=== PATIENT | female | born 2000 | race African-American/Black ===

== ENCOUNTER 2019-12-23 16:08 | Emergency (ER) | payer OTHER ==
[2019-12-23 16:15] VITALS: BMI 18.8
--- OUTSIDE RECORDS SUMMARY | 2019-12-23 16:23 | XMS ---
:2000 Author Organization [facility] Care Team Providers Name Role Phone ED STAFF PHYSICIAN, STAFF Unavailable Unavailable ED STAFF PHYSICIAN Unavailable Unavailable Re-disclosure Warning The records that you are about to access may contain information from federally- assisted alcohol or drug abuse programs. If such information is present, then the following federally mandated warning applies: This information has been disclosed to you from records protected by federal confidentiality rules (42 CFR part 2). The federal rules prohibit you from making any further disclosure of this information unless further disclosure is expressly permitted by the written consent of the person to whom it pertains or as otherwise permitted by 42 CFR part 2. A general authorization for the release of medical or other information is NOT sufficient for this purpose. The Federal rules restrict any use of the information to criminally investigate or prosecute any alcohol or drug abuse patient.The records that you are about to access may contain highly sensitive health information, the redisclosure of which is protected by Article 27-F of the [facility] Public Health law. If you continue you may haveaccess to information: Regarding HIV / AIDS; Provided by facilities licensed or operated by the [facility] Office of Mental Health; or Provided by the [facility] Office for People With Developmental Disabilities. If such information is present, then the following [facility] mandated warning applies: This information has been disclosed to you from confidential records which are protected by state law. State law prohibits you from making any further disclosure of this information without the specific written consent of the person to whom it pertains, or as otherwise permitted by law. Any unauthorized further disclosure in violation of state law may result in a fine or group home sentence or both. A general authorization for the release of medical or other information is NOT sufficient authorization for further disclosure. Allergies and Adverse Reactions Type Description Substance Reaction Status Data Source(s ) No Known No Known Allergies No Known eCW2 ( [facility] Encounters Encounter Providers Location Date Indications Data Source(s ) Emergency Attender: ED STAFF H 12/11/2019 [facility] PHYSICIANAttender: 05:52:00 PM EDT M edical Center STAFF ED STAFF - 12/11/2019 PHYSICIANAdmitter: 11:21:00 PM EDT ED STAFF PHYSICIAN [facility] 12:00:00 eCW2 ([facility] [place] AM EDT [facility]) Emergency H 12/03/2018 12:21:00 [facility] EDT - 12/03/2018 Cente r 02:33:00 PM EDT Patient discharged. Emergency H 10/18/2018 12:01:00 PM EDT [facility] Immunizations Vaccine Date Status Description Data Source(s) No Known Immunizations completed eCW2 ([facility]) Medications Medication Brand Start Product Dose Route Administrative Pharm[facility] Indications Reaction Description Data Name Date Form Instructions Instructions Source(s) Ibuprofen ibupro 1 complet [facility] 800 MG Oral [facility] Tablet 800 mg Medical ibuprofen Tablet Center 800 mg , Tablet, Ordere Ordered By: d By: Too Ye PADirection PADire s: 1 tablet ctions oral every : 1 eight hours tablet PRN oral pain-modera every te eight hours PRN pain-m oderat e Ibuprofen ibupro 1 complet [facility] 600 MG Oral fen [facility] Tablet 600 mg Medical ibuprofen Tablet Center 600 mg , Tablet, Ordere Ordered By: d By: Jenifer Samant Penar, cash FNPDirectio Penar, ns: 1 FNPDir tablet oral ection every six s: 1 hours PRN tablet pain oral every six hours PRN pain Cyclobenzap cyclob 1 complet Elie nt rine enzapr ed Deanna hydrochlori ine 10 Medica l de 10 MG mg Center Oral Tablet Tablet cyclobenzap , rine 10 mg Ordere Tablet, d By: Ordered By: Haley Canseco, FNPDirectio FNPDir ns: 1 ection tablet oral s: 1 three times tablet a day PRN oral pain-modera three te times a day PRN pain-m oderat e No Known complet eCW2 Medications ed ([facility]) Insurance Providers Payer name Policy type Policy ID Covered Covered constitution party's Policy P shannen / Coverage constitution party ID relationship to Slade Inf ormation type slade AFFINITY [id number] SP [id number] AFFINITY O [id number] 01 [id number] HEALTH PLAN AFFINITY O [id number] 01 [id number] HEALTH PLAN AFFINITY O [id number] 01 [id number] ESSENTIALS-C OMMERCIAL GUTIÉRREZ O [id number] 01 [id number] HEALTH Medicaid [id number] S [id number] Regular Clinic Visit Problems, Conditions, and Diagnoses Code Display Name Description Problem Type Effective Data Sour ce(s) Dates Unknown Problems Unknown Problems Problem eC W2 ([facility] N83.202 Unspecified UNSPECIFIED Diagnosis 12/11/2019 [facility] ovarian cyst, OVARIAN CYST, 05:52:00 PM Medical Center left side LEFT SIDE EDT R10.9 Unspecified UNSPECIFIED Diagnosis 12/11/2019 [facility] abdominal pain ABDOMINAL PAIN 05:52:00 PM Medic al Center EDT M54.9 Dorsalgia, DORSALGIA, Diagnosis 12/03/2018 [facility] unspecified UNSPECIFIED 12:21:[address] EDT Y99.8 Other external OTHER EXTERNAL Diagnosis 10/18/2018 [facility] cause status CAUSE STATUS 12:01:00 PM Medical C enter EDT Y92.[address] IN Diagnosis 10/18/[address] in APARTMENT 12:01:[address] as the PLACE EDT place of occurrence of the external cause Y93.9 Activity, ACTIVITY, Diagnosis 10/18/2018 [facility] unspecified UNSPECIFIED 12:01:[address] EDT W22.03XA Walked into WALKED INTO Diagnosis 10/18/2018 [facility] ernst furniture, FURNITURE, 12:01:00 PM Medical Dillan valencia initial INITIAL EDT encounter ENCOUNTER S90.121A Contusion of CONTUSION OF Diagnosis 10/18/2018 [facility] right lesser RIGHT LESSER 12:01:00 PM Medical C enter toe(s) without TOE(S) W/O EDT damage to nail, DAMAGE TO NAIL, initial INIT encounter 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 ([facility] test, test, 03:42:23 PM Meño non result positive result positive [facility]) Surgeries/Procedures Procedure Description Date Indications Data Source(s) Test 11/10/2019 12:00:00 eCW2 ( [facility] [place]) Results ID Date Data Source Urinalysis.[id number] 12/11/2019 06:38:00 PM EDT [facility] 0 Name Value Range Interpretation Description Data Sup porting Code Source(s) Document(s ) Color of Urine YELLOW <content Saint styleCode="Linda Deanna d">Color, Medical Urine Center </content>YELL OW <content styleCode="Hyacinth lics"> (YELLOW )</content> UNK CLEAR <content [facility] styleCode="Linda Deanna d">Urine Medical Clarity Center </content>ANNIE R <content styleCode="Hyacinth lics"> (CLEAR )</content> Ketones NEGATIVE <content Saint [Mass/volume] styleCode="Linda Deanna in Urine by d">Urine Medical Test strip Ketone Center </content>NEGA TIVE MG/DL<content styleCode="Hyacinth lics"> (NEGATIVE MG/DL)</conten t> UNK NEGATIVE <content Saint styleCode="Linda Deanna d">Urine Medical Bilirubin Center </content>NEGA TIVE <content styleCode="Hyacinth lics"> (NEGATIVE )</content> Glucose NEGATIVE <content Saint [Mass/volume] styleCode="Linda Deanna in Urine by d">Urine Medical Test strip Glucose Center </content>NEGA TIVE MG/DL<content styleCode="Hyacinth lics"> (NEGATIVE MG/DL)</conten t> Specific 1.015-1.02 <content [facility] gravity of 5 styleCode="Linda Huerta Urine by Test d">Urine Medical strip Specific Center [place] </content>1.02 0 <content styleCode="Hyacinth lics"> (1.015-1.025 )</content> Hemoglobin NEGATIVE <content Saint [Presence] in styleCode="L[facility] Urine by Test d">Urine Blood Medical strip </content>NEGA Center TIVE <content styleCode="Hyacinth lics"> (NEGATIVE )</content> Protein NEGATIVE <content Saint [Mass/volume] styleCode="Linda Hendersons in Urine by d">Urine Medical Test strip Protein Center </content>NEGA TIVE MG/DL<content styleCode="Hyacinth lics"> (NEGATIVE MG/DL)</conten t> pH of Urine by 4.5-8.0 <content Saint Test strip styleCode="Linda Hendersons d">Urine pH Medical </content>7.5 Center <content styleCode="Hyacinth lics"> (4.5-8.0 )</content> Nitrite NEGATIVE <content Saint [Presence] in styleCode="Linda Huerta Urine by Test d">Urine Medical strip Nitrite Center </content>NEGA TIVE <content styleCode="Hyacinth lics"> (NEGATIVE )</content> Leukocyte NEGATIVE <content Saint esterase styleCode="Linda Hendersons [Presence] in d">Urine Medical Urine by Test Leukocyte Center strip </content>NEGA TIVE <content styleCode="Hyacinth lics"> (NEGATIVE )</content> Urobilinogen 0.2-1.0 <content Saint [Units/volume] styleCode="Linda Hendersons in Urine by d">Urine Medical Test strip Urobilinogen Center </content>0.2 MG/DL<content styleCode="Hyacinth lics"> (0.2-1.0 MG/DL)</conten t> ID Date Data Source Liver 12/11/2019 06:38:00 PM EDT [facility] Profile.[id number] Name Value Range Interpretation Description Data Sup porting Code Source(s) Document(s ) Bilirubin.total 0.2-1.3 <content Saint [Mass/volume] in styleCode="Bold"> Lucas hs Serum or Plasma Bilirubin Total Medical </content>0.4 Center MG/DL<content styleCode="Italic s"> (0.2-1.3 MG/DL)</content> Alkaline 38-126 <content [facility] phosphatase styleCode="Bold"> Deanna [Enzymatic Alkaline Medical activity/volume] Phosphatase (ALP) Cente r in Serum or Plasma </content>66 IU/L<content styleCode="Italic s"> (38-126 IU/L)</content> Alanine 7-30 <content [facility] aminotransferase styleCode="Bold"> Lucas hs [Enzymatic Alanine Medical activity/volume] Aminotransferase Center in Serum or Plasma (ALT) </content>20 IU/L<content styleCode="Italic s"> (7-30 IU/L)</content> Aspartate 14-36 <content [facility] aminotransferase styleCode="Bold"> Lucas hs [Enzymatic Aspartate Medical activity/volume] Aminotransferase Center in Serum or Plasma (AST) </content>30 IU/L<content styleCode="Italic s"> (14-36 IU/L)</content> UNK 0.0-0.3 <content [facility] styleCode="Bold"> Deanna Bilirubin, Direct Medical </content>< 0.2 Center MG/DL<content styleCode="Italic s"> (0.0-0.3 MG/DL)</content> Albumin 3.5-5.0 <content [facility] [Mass/volume] in styleCode="Bold"> Lucas hs Serum or Plasma Albumin Medical </content>5.0 Center G/DL<content styleCode="Italic s"> (3.5-5.0 G/DL)</content> ID Date Data Source HematologyRou.[id number] 12/11/2019 06:38:00 PM EDT [facility] 0400 Name Value Range Interpretation Description Data Sup porting Code Source(s) Document(s ) Leukocytes 4.4-11.0 <content Saint [#/volume] in styleCode="Bold Deanna Blood by ">White Blood Medical Automated count Cell Count Center </content>6.40 KCUMM<content styleCode="Ital ics"> (4.4-11.0 KCUMM)</content > Erythrocytes 4.0-5.1 Below low normal <content Saint [#/volume] in styleCode="Bold Deanna Blood by ">Red Blood Medical Automated count Cell Count Center </content>3.87 MCUMM L<content styleCode="Ital ics"> (4.0-5.1 MCUMM)</content > Hemoglobin 12.3-16. <content Saint [Mass/volume] in 0 styleCode="Bold Deanna Blood ">Hemoglobin Medical </content>12.3 Center G/DL<content styleCode="Ital ics"> (12.3-16.0 G/DL)</content> Erythrocyte mean 32.0-37. <content [facility] corpuscular 0 styleCode="Bold Deanna hemoglobin ">Mean Corpus. Medical concentration Hgb Center [Mass/volume] by Concentration Automated count (MCHC) </content>32.0 G/DL<content styleCode="Ital ics"> (32.0-37.0 G/DL)</content> Erythrocyte mean 26.0-34. <content [facility] corpuscular 0 styleCode="Bold Deanna hemoglobin ">Mean Medical [Entitic mass] Corposcular Center by Automated Hemoglobin count </content>31.8 PG<content styleCode="Ital ics"> (26.0-34.0 PG)</content> Hematocrit 36.0-46. <content Saint [Volume 0 styleCode="Bold Deanna Fraction] of ">Hematocrit Medical Blood by </content>38.4 Center Automated count %<content styleCode="Ital ics"> (36.0-46.0 %)</content> Erythrocyte mean 80.0-100 <content [facility] corpuscular .0 styleCode="Bold Deanna volume [Entitic ">Mean Medical volume] by Corpuscular Center Automated count Volume </content>99.2 FL<content styleCode="Ital ics"> (80.0-100.0 FL)</content> Erythrocyte 11.5-14. <content [facility] distribution 5 styleCode="Bold Deanna width [Ratio] by ">Red Cell Medical Automated count Distribution Center Width </content>11.8 %<content styleCode="Ital ics"> (11.5-14.5 %)</content> Lymphocytes 24.0-44. <content Saint [#/volume] in 0 styleCode="Bold Deanna Blood by ">Lymphocyte Medical Automated count </content>28.6 Center %<content styleCode="Ital ics"> (24.0-44.0 %)</content> Platelets 130-400 <content Saint [#/volume] in styleCode="Bold Deanna Blood by ">Platelet Medical Automated count Count Center </content>217 KCUMM<content styleCode="Ital ics"> (130-400 KCUMM)</content > UNK 1.6-7.3 <content Saint styleCode="Bold Deanna ">Neutrophil Medical Count Center </content>3.54 KCUMM<content styleCode="Ital ics"> (1.6-7.3 KCUMM)</content > Neutrophils 36-66 <content Saint [#/volume] in styleCode="Bold Deanna Blood by ">Neutrophil Medical Automated count </content>55.3 Center %<content styleCode="Ital ics"> (36-66 %)</content> Platelet mean 8.0-11.0 Above high <content Saint volume [Entitic normal styleCode="Bold Deanna volume] in Blood ">Mean Platelet Medical by Automated Volume Center count </content>11.8 FL H<content styleCode="Ital ics"> (8.0-11.0 FL)</content> Monocytes 3.0-10.0 Above high <content Saint [#/volume] in normal styleCode="Bold Deanna Blood by ">Monocyte Medical Automated count </content>14.7 Center % H<content styleCode="Ital ics"> (3.0-10.0 %)</content> Eosinophils 0-5.0 <content Saint [#/volume] in styleCode="Bold Deanna Blood by ">Eosinophil Medical Automated count </content>0.3 Center %<content styleCode="Ital ics"> (0-5.0 %)</content> UNK 0.2-0.9 Above high <content Saint normal styleCode="Bold Deanna ">Monocyte Medical Count Center </content>0.94 KCUMM H<content styleCode="Ital ics"> (0.2-0.9 KCUMM)</content > UNK 1.0-4.8 <content Saint styleCode="Bold Deanna ">Lymphocyte Medical Count Center </content>1.83 KCUMM<content styleCode="Ital ics"> (1.0-4.8 KCUMM)</content > UNK 0 <content Saint styleCode="Bold Deanna ">Nucleated Red Medical Blood Cell Center </content>0.0 /100<content styleCode="Ital ics"> (0 /100)</content> UNK 0.0 <content Saint styleCode="Bold Deanna ">Nucleated Red Medical Blood Cell Center Count </content>0.00 KCUMM<content styleCode="Ital ics"> (0.0 KCUMM)</content > Basophils 0.0-1.0 <content Saint [#/volume] in styleCode="Bold Deanna Blood by ">Basophil Medical Automated count </content>0.8 Center %<content styleCode="Ital ics"> (0.0-1.0 %)</content> UNK 0.0-0.3 <content Saint styleCode="Bold Deanna ">Basophil Medical Count Center </content>0.05 KCUMM<content styleCode="Ital ics"> (0.0-0.3 KCUMM)</content > UNK 0.0-0.6 <content [facility] styleCode="Bold Deanna ">Eosinophil Medical Count Center </content>0.02 KCUMM<content styleCode="Ital ics"> (0.0-0.6 KCUMM)</content > UNK 0-0.1 <content Saint styleCode="Bold Deanna ">Immature Medical Granulocyte Center Count </content>0.02 KCUMM<content styleCode="Ital ics"> (0-0.1 KCUMM)</content > UNK < 1 <content Saint styleCode="Bold Deanna ">Immature Medical Granulocyte Center Ratio </content>0.3 %<content styleCode="Ital ics"> (< 1 %)</content> ID Date Data Source GFR(Creatinine).[id number] 12/11/2019 06:38:00 PM EDT [facility] 0-0400 Name Value Range Interpretation Code Description Data Vanna rce(s) Supporting Document(s ) UNK > 60 <content [facility] styleCode="Bold"> Medical Cent er EGFR </content>137 GFR<content styleCode="Italic s"> (> 60 GFR)</content> ID Date Data Source EUNMRKIRANDA.[id number] 12/11/2019 06:38:00 PM EDT [facility] -0400 Name Value Range Interpretation Description Data Sup porting Code Source(s) Document(s ) UNK 30-110 <content [facility] styleCode="Bold Medical ">Amylase Center </content>78 IU/L<content styleCode="Ital ics"> (30-110 IU/L)</content> Lipase 23-300 <content [facility] [Enzymatic styleCode="Bold Medical activity/vo ">Lipase Center lume] in </content>85 Serum or IU/L<content Plasma styleCode="Ital ics"> (23-300 IU/L)</content> ID Date Data Source [id number] 12/11/2019 06:38:00 PM EDT [facility] Name Value Range Interpretation Description Data Sup porting Code Source(s) Document(s ) Potassium 3.5-5.3 <content Saint [Moles/volume] in styleCode="Bold"> Altaf phs Serum or Plasma Potassium Medical </content>4.3 Center MEQ/L<content styleCode="Italic s"> (3.5-5.3 MEQ/L)</content> Sodium 137-145 <content Saint [Moles/volume] in styleCode="Bold"> Altaf phs Serum or Plasma Sodium Medical </content>137 Center MEQ/L<content styleCode="Italic s"> (137-145 MEQ/L)</content> Chloride 98-107 <content [facility] [Moles/volume] in styleCode="Bold"> Altaf phs Serum or Plasma Chloride Medical </content>101 Center MEQ/L<content styleCode="Italic s"> (98-107 MEQ/L)</content> Carbon dioxide, 22-30 <content Saint total styleCode="Bold"> Deanna [Moles/volume] in Carbon Dioxide Medical Serum or Plasma </content>28 Center MEQ/L<content styleCode="Italic s"> (22-30 MEQ/L)</content> UNK 7-17 <content Saint styleCode="Bold"> Deanna BUN </content>11 Medical MG/DL<content Center styleCode="Italic s"> (7-17 MG/DL)</content> Creatinine 0.5-1.3 <content Saint [Mass/volume] in styleCode="Bold"> Lucas hs Serum or Plasma Creatinine Medical </content>0.7 Center MG/DL<content styleCode="Italic s"> (0.5-1.3 MG/DL)</content> Aspartate 14-36 <content [facility] aminotransferase styleCode="Bold"> Lucas hs [Enzymatic Aspartate Medical activity/volume] Aminotransferase Center in Serum or Plasma (AST) </content>30 IU/L<content styleCode="Italic s"> (14-36 IU/L)</content> Calcium 8.4-10. <content Saint [Mass/volume] in 2 styleCode="Bold"> Lucas hs Serum or Plasma Calcium Medical </content>10.0 Center MG/DL<content styleCode="Italic s"> (8.4-10.2 MG/DL)</content> UNK > 60 <content Saint styleCode="Bold"> Deanna EGFR Medical </content>137 Center GFR<content styleCode="Italic s"> (> 60 GFR)</content> Glucose 74-106 <content Saint [Mass/volume] in styleCode="Bold"> Lucas hs Serum or Plasma Glucose Medical </content>87 Center MG/DL<content styleCode="Italic s"> (74-106 MG/DL)</content> Alanine 7-30 <content [facility] aminotransferase styleCode="Bold"> Lucas hs [Enzymatic Alanine Medical activity/volume] Aminotransferase Center in Serum or Plasma (ALT) </content>20 IU/L<content styleCode="Italic s"> (7-30 IU/L)</content> Bilirubin.total 0.2-1.3 <content Saint [Mass/volume] in styleCode="Bold"> Lucas hs Serum or Plasma Bilirubin Total Medical </content>0.4 Center MG/DL<content styleCode="Italic s"> (0.2-1.3 MG/DL)</content> Albumin 3.5-5.0 <content Saint [Mass/volume] in styleCode="Bold"> Lucas hs Serum or Plasma Albumin Medical </content>5.0 Center G/DL<content styleCode="Italic s"> (3.5-5.0 G/DL)</content> Alkaline 38-126 <content Saint phosphatase styleCode="Bold"> Deanna [Enzymatic Alkaline Medical activity/volume] Phosphatase (ALP) Cente r in Serum or Plasma </content>66 IU/L<content styleCode="Italic s"> (38-126 IU/L)</content> Procedure Social History Code Duration Value Status Description Data Source(s ) Smoking 12/11/2019 Denies Ever completed Denies Ever Smoked [facility] 06:10:00 PM EDT Smoked Medical C enter Smoking 12/11/2019 Denies Ever completed Denies Ever Smoked [facility] 06:10:00 PM EDT Smoked Medical C enter Smoking 12/03/2018 Denies Ever completed Denies Ever Smoked [facility] 01:29:00 PM EDT Smoked Medical C enter Smoking 12/03/2018 Denies Ever completed Denies Ever Smoked [facility] 01:04:00 PM EDT Smoked Medical C enter Smoking 12/03/2018 Denies Ever completed Denies Ever Smoked [facility] 12:38:00 PM EDT Smoked Medical C enter Smoking 10/18/2018 Denies Ever completed Denies Ever Smoked [facility] 12:10:00 PM EDT Smoked Medical C enter Smoking 10/18/2018 Denies Ever completed Denies Ever Smoked [facility] 12:04:00 PM EDT Smoked Medical C enter Smoking 10/18/2018 Denies Ever completed Denies Ever Smoked [facility] 12:00:00 PM EDT Smoked Medical C enter Smoking Unknown if ever completed Unknown if ever eCW2 ([facility]anned [facility]) Vital Signs ID Date Data Source UNK Name Value Range Interpretation Code Description Data Source(s) Body temperature 37.435689 37.346773 [facility] Respiratory rate 16 /min 16 /min [facility] Oxygen saturation 100 % 100 % [facility] osephs in [facility] blood [facility] by Pulse oximetry Heart rate 84 /min 84 /min [facility] Diastolic blood 65 mm[Hg] 65 mm[Hg] [facility] Systolic blood 127 mm[Hg] 127 mm[Hg] [facility] Body weight 46.825237 46.895010 kg [facility] Measured kg Medical Center Body temperature 36.188404 36.138858 [facility] Respiratory rate 18 /min 18 /min [facility] Oxygen saturation 99 % 99 % [facility] osephs in [facility] by Pulse oximetry Heart rate 85 /min 85 /min [facility] Body height 154.900677 154.306687 cm [facility] Diastolic blood 86 mm[Hg] 86 mm[Hg] [facility] Systolic blood 118 mm[Hg] 118 mm[Hg] [facility] Body mass index 19.2 kg/m2 19.2 kg/m2 [facility] (BMI) [Ratio] Medical [facility] Diastolic blood 73 mm[Hg] 73 mm[Hg] eCW2 ([facility] Systolic blood 107 mm[Hg] 107 mm[Hg] eCW2 (Plan lisa pressure [facility]) Body weight 99 [lb_av] 99 [lb_av] eCW2 ([facility]anned [facility]) Body temperature 36.447231 36.503186 [facility] Body weight 47.574501 47.852059 kg [facility] Measured kg [facility] Center Body temperature 36.352996 36.298757 [facility] Respiratory rate 17 /min 17 /min [facility] Oxygen saturation 100 % 100 % [facility] osephs in Arterial blood [facility] by Pulse oximetry Heart rate 60 /min 60 /min [facility] Body height 152.240417 152.631965 cm [facility] Diastolic blood 61 mm[Hg] 61 mm[Hg] [facility] pressure [facility] Systolic blood 129 mm[Hg] 129 mm[Hg] [facility] Body mass index 20.3 kg/m2 20.3 kg/m2 [facility] (BMI) [Ratio] [facility] ter Body temperature 36.098977 36.674070 [facility] Body weight 46.156042 46.160653 kg [facility] Measured kg [facility] Center Body temperature 37.603747 37.882324 [facility] Respiratory rate 18 /min 18 /min [facility] Oxygen saturation 98 % 98 % [facility]sephs in Arterial blood [facility] by Pulse oximetry Heart rate 80 /min 80 /min [facility] Diastolic blood 69 mm[Hg] 69 mm[Hg] [facility] Systolic blood 119 mm[Hg] 119 mm[Hg] [facility] Patient Treatment Plan of Care Planned Activity Planned Date Details Description Data Source (s) Ibuprofen 600 MG Oral Tablet [facility] Cyclobenzaprine hydrochloride [facility] 10 MG Oral Tablet [place] Ibuprofen 800 MG Oral Tablet [facility]
--- NOTE | 2019-12-23 17:26 | PDOC ---
History of Present Illness - General Chief Complaint: Pain, Acute Stated Complaint: ABDOMINAL PAIN Time Seen by Provider: 12/23/19 16:35 History Source: Patient Exam Limitations: Clinical Condition - History of Present Illness Initial Comments: 12/23/19 17:22 Patient with recent diagnosis ovarian cyst a week ago presented with complaint of persistently suprapubic cramping abdominal pain for a week now. Patient was seen in [facility] a week ago for abdominal pain and all work-up including abdominal CAT scan came back normal except ovarian cyst. Patient reports she was not discharged home with any medication for the ovarian cyst. Patient reported also seeing her SECURITY PATROL DRIVER 3 weeks ago for vaginal discharge and was treated on vaginal gel for yeast infection. Denies nausea, vomiting, fever, chills, vaginal bleeding, shortness of breath, weakness. LMP November 30. Denies any other symptoms. Patient report having her SECURITY PATROL DRIVER appointment in a week Is this a multiple visit Asthma Patient?: No Timing/Duration: 1 week Past History - Medical History Allergies/Adverse Reactions: Allergies Allergy/AdvReac Type Severity Reaction Status Date / Time No Known Allergies Allergy Verified 12/23/19 16:12 Home Medications: Ambulatory Orders Ibuprofen 600 mg PO Q8H PRN #20 tablet 12/23/19 COPD: No Other medical history: ovarian cyst - Reproductive History Is Patient Now?: No - Psycho-Social/Smoking History Smoking History: Never smoked - Substance Abuse Hx (Audit-C & DAST Scrn) How often the patient has a drink containing alcohol: Never Score: In Men: 4 or > Positive; In Women: 3 or > Positive: 0 Screen Result (Pos requires Nsg. Audit-10AR): Negative In the last yr the pt used illegal drug/Rx for NonMed reason: No Score: Yes response is considered Positive: 0 Screen Result (Positive result requires Nsg. DAST-10): Negative Review of Systems - Review of Systems Able to Perform ROS?: Yes Is the patient limited Gabonese proficient: No Constitutional: No: Chills, Fever, Malaise HEENTM: No: Symptoms Reported, See HPI, Eye Pain, Blurred Vision, Tearing, Recent change in vision, Double Vision, Cataracts, Ear Pain, Ocular Prothesis, Ear Discharge, Nose Pain, Nose Congestion, Tinnitus, Nose Bleeding, Hearing Loss, Throat Pain, Throat Swelling, Mouth Pain, Dental Problems, Difficulty Swallowing, Mouth Swelling, Other Respiratory: No: Symptoms reported, See HPI, Cough, Orthopnea, Shortness of Breath, SOB with Exertion, SOB at Rest, Stridor, Wheezing, Productive cough, Hemoptysis, Other Cardiac (ROS): No: Symptoms Reported, See HPI, Chest Pain, Edema, Irregular Heart Rate, Lightheadedness, Palpitations, Syncope, Chest Tightness, Other ABD/GI: Yes: Symptoms Reported, See HPI, Abdominal cramping (suprapubic pain). No: Blood Streaked Bowels, Constipated, Diarrhea, Difficulty Swallowing, Nausea, Poor Appetite, Poor Fluid Intake, Rectal Bleeding, Vomiting, Indigestion : Yes: Symptoms Reported, See HPI, Discharge, Pain (suprapubic pain). No: Burning, Dysuria, Frequency, Flank Pain, Hematuria, Urgency Musculoskeletal: No: Symptoms Reported, Back Pain Neurological: No: Symptoms reported, Dizziness All Other Systems: Reviewed and Negative *Physical Exam - Vital Signs Last Vital Signs Temp Pulse Resp BP Pulse Ox 97.8 F 73 18 105/63 98 12/23/19 16:12 12/23/19 16:12 12/23/19 16:12 12/23/19 16:12 12/23/19 16:12 - Physical Exam General Appearance: Yes: Nourished, Appropriately Dressed. No: Apparent Distress HEENT: positive: Normal ENT Inspection Neck: positive: Supple Respiratory/Chest: positive: Lungs Clear, Normal Breath Sounds. negative: Chest Tender, Respiratory Distress, Accessory Muscle Use Cardiovascular: positive: Regular Rhythm, Regular Rate Female Pelvic Exam: positive: normal external exam, cervical os closed, normal adnexa, discharge (moderate amount of white thick discharge in vaginal vault consistent with candidiasis. No cervical motion tenderness. No visible lesion. Cervical os closed. No blood in vaginal vault. No abdominal tenderness on exam). negative: CMT, lesions, vaginal bleeding Gastrointestinal/Abdominal: positive: Normal Bowel Sounds, Flat, Soft. negative: Tender Musculoskeletal: positive: Normal Inspection. negative: CVA Tenderness Extremity: positive: Normal Inspection, Normal Range of Motion Integumentary: positive: Normal Color Neurologic: positive: Fully Oriented, Alert, Normal Mood/Affect, Normal Response, Motor Strength 5/5 ED Treatment Course - RADIOLOGY Radiology Studies Ordered: Category Date Time Status TRANSVAGINAL ULTRASOUND US [US] Stat Ultrasound 12/23/19 17:10 Ordered Medical Decision Making - Medical Decision Making 12/23/19 17:23 Patient with recent diagnosis ovarian cyst a week ago presented with complaint of persistently suprapubic cramping abdominal pain for a week now. Patient was seen in [facility] a week ago for abdominal pain and all work-up including abdominal CAT scan came back normal except ovarian cyst. Patient reports she was not discharged home with any medication for the ovarian cyst. Patient reported also seeing her SECURITY PATROL DRIVER 3 weeks ago for vaginal discharge and was treated on vaginal gel for yeast infection. Denies nausea, vomiting, fever, chills, vaginal bleeding, shortness of breath, weakness. LMP November 30. Denies any other symptoms. Patient report having her SECURITY PATROL DRIVER appointment in a week Exam significant for moderate amount of white thick discharge in vaginal vault consistent with candidiasis. No cervical motion tenderness. No visible lesion. Cervical os closed. No blood in vaginal vault. No abdominal tenderness on exam. Patient in no acute distress. Symptoms likely cystitis versus pain form yeast infection versus ovarian cyst pain. Genital culture of vaginal discharge sent. GC and chlamydia tests sent from vaginal swab. UA, urine hCG and urine culture lab ordered. Transvaginal ultrasound ordered to rule out acute abnormality. Patient will be treated with Diflucan prior to discharge if negative 12/23/19 18:19 UA normal and shows no acute abnormality. Urine hCG negative. GC and chlamydia test pending. Patient given Diflucan 150 mg p.o. for vaginal candidiasis. Transvaginal ultrasound shows 2 cm x 2 cm left ovarian cyst otherwise normal ultrasound. Patient stable for discharge ibuprofen PRN for ovarian cyst pain with SECURITY [employer]ROL DRIVER follow-up as scheduled next week Discharge - Discharge Information Problems reviewed: Yes Clinical Impression/Diagnosis: Vaginitis Qualifiers: Chronicity: acute Qualified Code(s): N76.0 - Acute vaginitis Ovarian cyst Qualifiers: Laterality: left Qualified Code(s): N83.202 - Unspecified ovarian cyst, left side Condition: Stable Disposition: HOME - Admission No - Additional Discharge Information Prescriptions: Ibuprofen 600 mg PO Q8H PRN #20 tablet PRN Reason: pain - Follow up/Referral Referrals: Basil Whitfield MD [Primary Care Provider] - - Patient Discharge Instructions Patient Printed Discharge Instructions: DI for Ovarian Cyst Additional Instructions: Your urine shows no infection. Your ultrasound shows left ovarian cyst of 2 cm. Take prescribed Motrin as needed for ovarian cyst. Follow-up with your BUSINESS LAW TEACHER as scheduled next week. You were given antifungal pill today for yeast infection. Make sure you keep your SECURITY PATROL DRIVER appointment next week - Post Discharge Activity
[2019-12-23 17:38] LABS: PH,URINE 6.5 (5.0-8.0); URINE APPEARANCE CLOUDY; URINE BILIRUBIN NEGATIVE (NEGATIVE); URINE COLOR YELLOW; URINE GLUCOSE (UA) NEGATIVE (NEGATIVE); URINE KETONE NEGATIVE (NEGATIVE); URINE LEUK ESTERASE NEGATIVE (NEGATIVE); URINE NITRITE NEGATIVE (NEGATIVE); URINE PROTEIN NEGATIVE (NEGATIVE)
[2019-12-23 18:09] LABS: HCG,QUALITATIVE URINE Negative
[2019-12-23] MEDS ORDERED: FLUCONAZOLE 150 MG TABLET PO ONE ×2 (18:14→18:27)
[2019-12-23 18:35] VITALS: BP 110/68; PULSE 88; TEMP 98.6
== END 2019-12-23 18:35 | disposition home or self-care (01) ==
LOC: JER 16:08
DX: N76.0 Acute vaginitis (principal); N83.202 Unspecified ovarian cyst, left side
CPT/HCPCS: 36415; 76830-TC; 81003; 84703; 87070; 87086; 87205; 87491; 87591; 87661; 99284-25

== ENCOUNTER 2021-04-29 15:35 | Emergency (ER) | payer OTHER ==
[2021-04-29 15:48] VITALS: BP 118/73; PULSE 76; TEMP 97.3; BMI 22.1
[2021-04-29] MEDS ORDERED: IBUPROFEN 400 MG TABLET (FP) PO ONE ×2 (16:18→16:45)
[2021-04-29 17:22] LABS: URINE APPEARANCE TURBID; URINE BILIRUBIN NEGATIVE (NEGATIVE); URINE COLOR YELLOW; URINE GLUCOSE (UA) NEGATIVE (NEGATIVE); URINE KETONE NEGATIVE (NEGATIVE); URINE LEUK ESTERASE NEGATIVE (NEGATIVE); URINE NITRITE NEGATIVE (NEGATIVE); URINE PROTEIN NEGATIVE (NEGATIVE)
[2021-04-29] MEDS ORDERED: ACETAMINOPHEN 325 MG TABLET (FP) PO ONE (18:31)
[2021-04-29] MEDS ORDERED: ACETAMINOPHEN 325 MG TABLET (FP) ONE (18:32)
== END 2021-04-29 19:09 | disposition home or self-care (01) ==
LOC: UNMERGE 15:35 → MERGE 15:35 → JER 15:35
DX: R10.30 Lower abdominal pain, unspecified (principal)
CPT/HCPCS: 36415; 76830-TC; 76856-TC; 81003; 84703; 87086; 87491; 87591; 99284-25

== ENCOUNTER 2021-05-16 17:02 | Emergency (ER) | payer OTHER ==
[2021-05-16 17:12] VITALS: BP 114/57; PULSE 79; TEMP 97; BMI 22.8
[2021-05-16] MEDS ORDERED: METHOCARBAMOL 500 MG TABLET PO ONE (17:58)
[2021-05-16] MEDS ORDERED: ACETAMINOPHEN 500 MG TABLET (FP) PO ONE (17:58)
[2021-05-16] MEDS ORDERED: METHOCARBAMOL 500 MG TABLET ONE (18:04)
[2021-05-16] MEDS ORDERED: ACETAMINOPHEN 500 MG TABLET (FP) ONE (18:04)
== END 2021-05-16 18:11 | disposition home or self-care (01) ==
LOC: JERFT 17:02
DX: M54.2 Cervicalgia (principal)
CPT/HCPCS: 99283-25

== ENCOUNTER 2021-12-19 10:57 | Emergency (ER) | payer OTHER ==
[2021-12-19 11:14] VITALS: BP 107/66; PULSE 111; RESP 22; TEMP 103.1; BMI 25.0
[2021-12-19] MEDS ORDERED: ACETAMINOPHEN 500 MG TABLET (FP) PO ONE (12:07)
[2021-12-19] MEDS ORDERED: ACETAMINOPHEN 500 MG TABLET (FP) ONE (12:39)
== END 2021-12-19 13:28 | disposition home or self-care (01) ==
LOC: JCOVINFU 10:57
DX: J18.9 Pneumonia, unspecified organism (principal)
CPT/HCPCS: 0241U-QW; 71046-TC-FY; 93005; 93010; 99285-25

== ENCOUNTER 2023-01-06 16:11 | Emergency (ER) | payer OTHER ==
[2023-01-06 16:23] VITALS: BP 106/48; PULSE 63; RESP 18; TEMP 98.4; BMI 22.8
[2023-01-06] MEDS ORDERED: IBUPROFEN 600 MG TABLET (FP) PO ONE ×2 (17:21→17:40)
== END 2023-01-06 18:27 | disposition home or self-care (01) ==
LOC: JERFT 16:11
DX: R07.0 Pain in throat (principal); H92.02 Otalgia, left ear; K08.89 Other specified disorders of teeth and supporting structures; B34.9 Viral infection, unspecified; Z20.822 Contact with and (suspected) exposure to COVID-19
CPT/HCPCS: 0241U-QW; 87651; 99283-25

== ENCOUNTER 2023-02-17 16:41 | Emergency (ER) | payer OTHER ==
[2023-02-17 16:57] VITALS: BP 104/48; PULSE 76; RESP 17; TEMP 98.5; BMI 22.8
== END 2023-02-17 19:02 | disposition home or self-care (01) ==
LOC: JERFT 16:41 → JER 16:41 → JERFT 19:02
DX: R05.9 Cough, unspecified (principal); R09.81 Nasal congestion; R09.89 Other specified symptoms and signs involving the circulatory and respiratory systems; J00 Acute nasopharyngitis [common cold]; Z20.822 Contact with and (suspected) exposure to COVID-19
CPT/HCPCS: 0241U-QW; 87651; 99283-25